=== PATIENT | female | born 1970 | race Caucasian/White ===

== ENCOUNTER 2022-05-28 10:22 | Emergency (ER) | payer BC ==
[2022-05-28 12:39] LABS: HEMOGLOBIN 14.6 gm/dl (12.3-15.3); RED BLOOD COUNT 4.77 M/UL (4.00-5.10); WHITE BLOOD COUNT 3.7 K/UL (4.5-11.0)
[2022-05-28 13:04] LABS: BUN/CREATININE RATIO 13 (0-10)
== END 2022-05-28 13:35 | disposition home or self-care (01) ==
LOC: ER1 10:22
PROVIDERS: Emergency Medicine
DX: U07.1 COVID-19 (principal); I10 Essential (primary) hypertension; F17.200 Nicotine dependence, unspecified, uncomplicated
CPT/HCPCS: 71045; 80053; 82550; 82553; 84484; 85025; 99284